=== PATIENT | female | born 1980 | race Caucasian/White ===

== ENCOUNTER 2016-05-17 23:51 | Outpatient (CLI) | payer MEDICAID ==
[~2016-05-17] VITALS: Ht 165.1 cm; Wt 71.6 kg
[~2016-05-17 23:51] MED LIST: PREN-46 PO
[2016-05-18 00:18] VITALS: BP 106/59; PULSE 80; RESP 16; Ht 165.1 cm; Wt 71.6 kg
[2016-05-18 00:42] LABS: ADD UMIC YES; URINE BILIRUBIN (Dip) NEGATIVE (NEGATIVE); URINE BLOOD (Dip) TRACE (NEGATIVE); URINE COLOR LT. YELLOW (YELLOW); URINE GLUCOSE (Dip) NEGATIVE (NEGATIVE); URINE KETONES (Dip) NEGATIVE (NEGATIVE); URINE LEUKOCYTE ESTERASE (Dip) NEGATIVE (NEGATIVE); URINE NITRITE (Dip) NEGATIVE (NEGATIVE); URINE TOTAL PROTEIN (Dip) NEGATIVE (NEGATIVE); URINE UROBILINOGEN (Dip) 0.2 E.U./dL (0.1-1.0)
[2016-05-18 00:51] LABS: BASOPHILS % 0.4 % (0.0-2.0); EOSINOPHILS # 0.2 10^3/ul (0.0-0.5); EOSINOPHILS % 2.3 % (0.0-7.0); HEMATOCRIT 32.2 % (37.0-47.0); HEMOGLOBIN 11.1 g/dl (12.0-16.0); LYMPHOCYTES # 1.9 10^3/ul (0.8-2.9); LYMPHOCYTES % 20.5 % (15.0-51.0); MEAN CORPUSCULAR HEMOGLOBIN 31.1 pg (29.0-33.0); MEAN CORPUSCULAR HGB CONC 34.5 g/dl (32.0-37.0); MEAN CORPUSCULAR VOLUME 90.2 fl (82.0-101.0); MEAN PLATELET VOLUME 10.1 fl (7.4-10.4); MONOCYTE # 0.8 10^3/ul (0.3-0.9); MONOCYTES % 8.5 % (0.0-11.0); NEUTROPHIL # 6.2 10^3/ul (1.6-7.5); NEUTROPHILS % 67.3 % (39.0-77.0); PLATELET COUNT 173 10^3/UL (140-415); RED BLOOD COUNT 3.57 10^6/ul (4.20-5.40); RED CELL DISTRIBUTION WIDTH 12.8 % (11.5-14.5); WHITE BLOOD COUNT 9.2 10^3/ul (4.8-10.8)
--- NOTE | 2016-05-18 01:13 | RADRPT ---
PROCEDURE: CERVICAL LENGTH ULTRASOUND CLINICAL INDICATION: Pre-term labor. TECHNIQUE: Transabdominal and transvaginal imaging of the cervical canal was performed utilizing g ray-scale imaging. Sagittal and transverse images were obtained. The images were reviewed on a PACS workstation. COMPARISON: None. FINDINGS: heart rate is 122 beats per minute. The cervix is closed with a length of 3.8 cm as visualized with transvaginal transducer. Placenta is anterior without evidence of abruption or previa. IMPRESSION: The cervix is closed with a length of 3.8 cm. No evidence of placental abruption or previa. RPTAT: AADD .Neo Cavanaugh MD, MD Date Time Electronically viewed and signed by .Neo Cavanaugh MD, on 05/18/2016 01:12 .B/
--- NOTE | 2016-05-18 01:43 | TRIAGE ---
OB Triage Datetime Report Generated by CPN: 05/18/2016 01:43 Datetime: 05/18/2016 01:34 Monitor Mode: Palpation Resting Tone Elwin: Relaxed Datetime: 05/18/2016 01:30 Labor Evaluation Frequency: NONE Duration (sec)2399: NONE Pattern: Normal: <= 5 Contractions in 10 Minutes Resting Tone Elwin: Relaxed Datetime: 05/18/2016 01:25 Stage of : OB Triage Datetime: 05/18/2016 01:00 Labor Evaluation Frequency: none Duration (sec)2399: none Pattern: Normal: <= 5 Contractions in 10 Minutes Resting Tone Elwin: Relaxed Datetime: 05/18/2016 00:48 Comments: external monitor removed. nst completed Datetime: 05/18/2016 00:30 Labor Evaluation Frequency: NONE Monitor Mode: External Duration (sec)2399: NONE Pattern: Normal: <= 5 Contractions in 10 Minutes Heart Rate FHR Baseline Rate: 135 Monitor Mode: External US FHR Baseline Changes: No Baseline Change Variability: Moderate 6-25 bpm Accelerations: 10X10 Decelerations: None Category: Category I Datetime: 05/18/2016 00:02 Monitor Mode: Palpation Resting Tone Elwin: Relaxed Datetime: 05/18/2016 00:01 Stage of : OB Triage Monitor Mode: External (Annotations: monitors applied) Monitor Mode: External US (Annotations: monitors applied) Datetime: 05/17/2016 23:56 Assessment Type: Triage EGA: 24.1 Maternal Assessment Level of Consciousness: Fully Conscious Headache: Denies Blurred Vision: No Respiratory Effort: Unlabored; Regular Rhythm; Equal Expansion Breath Sounds, Left: Clear and Equal Breath Sounds, Right: Clear and Equal Nausea/Vomiting: Denies RUQ Epigastric Pain: Denies Facial Edema: None Fall Risk Assessment History of Falling: (0) No Secondary Diagnosis: (0) No Ambulatory Aid: (0) Bedrest/Nurse Assist IV Therapy: (0) No Gait: (0) Normal/Bedrest/Immobile Mental Status: (0) Oriented to Own Ability Fall Score: 0 Fall Risk Score Definition: No Risk: No action required Datetime: 05/17/2016 23:54 Time of Arrival: 05/17/2016 23:45 Arrived By: Ambulatory Arrived From: Home Chief Complaint: SCANT BLEEDING AT 21:00 Movement: Absent Contractions: Denies/Absent Rupture of Membranes: Denies Vaginal Bleeding: Scant Vaginal Discharge: Denies Recent Sexual Intercouse: Yes Abdominal Trauma: Not Applicable Patient Complaints: Other Time Provider Notified: 05/18/2016 00:11 Provider Notified: JOSE Initial Plan: EFM, CALL OB
--- NOTE | 2016-05-18 01:47 | TRIAGE ---
OB Triage Datetime Report Generated by CPN: 05/18/2016 01:47 Datetime: 05/17/2016 23:54 Movement: Present
--- NOTE | 2016-05-18 01:49 | QN ---
Documentation Comment 36-year-old with IUP at 24 weeks with care at another facility presented with complaint of postcoital bleeding started tonight after she had intercourse in the morning. She feels some intermittent low back pain as well. She denies any leaking of fluid. She denies any decreased movement. No other complaint. Physical examination : general appearance, alert and oriented and in not in acute distress. Abdomen: Soft, gravid, nontender, no rebound tenderness, no guarding no rigidity Fundal height consistent with gestational age. Extremities: No calf tenderness no click no edema. NST: Appropriate for gestational age. No contraction the monitor seen. Blood group: O+ Hemoglobin 11.1 Ultrasound no evidence of abruption or previa Cervical length 3.8 cm. Assessment: IUP at 24 weeks Status post postcoital light bleeding, resolved. Rh+ PROCEDURE: CERVICAL LENGTH ULTRASOUND CLINICAL INDICATION: Pre-term labor. TECHNIQUE: Transabdominal and transvaginal imaging of the cervical canal was performed utilizing maldonado-scale imaging. Sagittal and transverse images were obtained. The images were reviewed on a PACS workstation. COMPARISON: None. FINDINGS: heart rate is 122 beats per minute. The cervix is closed with a length of 3.8 cm as visualized with transvaginal transducer. Placenta is anterior without evidence of abruption or previa. IMPRESSION: The cervix is closed with a length of 3.8 cm. No evidence of placental abruption or previa. RPTAT: AADD No evidence of labor. Patient will be discharged home. Patient was given labor precaution Advised the patient to return to triage if she has any contractions, leaking of fluid, decreased movement or for any other concern immediately. Patient verbalized understanding. Next Follow-up with OB clinic in 2-3 days recommended. MARK GARCIA MD May 18, 2016 01:49
[2016-05-18 01:51] LABS: SQUAMOUS EPITHELIAL CELL,UR RARE; URINE RBCS 0-2 /HPF (0)
== END 2016-05-18 01:46 | disposition home or self-care (01) ==
LOC: OBT 23:51 → L-D 23:53 → OBT 05-18 01:46
PROVIDERS: ATTEND Obstetrics & Gynecology Obstetrics
DX: O26.892 Other specified pregnancy related conditions, second trimester (principal); N93.0 Postcoital and contact bleeding; O09.522 Supervision of elderly multigravida, second trimester; Z3A.24 24 weeks gestation of pregnancy
CPT/HCPCS: 36415; 76815; 76817; 81001; 81003; 85025; 86850; 86900; 86901; Z7500; G0463

== ENCOUNTER 2016-09-08 17:16 | Inpatient (IN) | payer MEDICAID ==
[~2016-09-08] VITALS: Ht 167.6 cm; Wt 76.2 kg
[2016-09-08 17:21] VITALS: Ht 167.6 cm; Wt 76.2 kg
[2016-09-08] MEDS ORDERED: LACTATED RINGER'S 1,000 ML IV SCH (17:38)
[2016-09-08 17:59] LABS: ADD SCAN DIFF NO
[2016-09-08] MEDS ORDERED: OXYTOCIN 30 UNITS/LR 500 ML IV PRN ×2 (18:00→23:30)
[2016-09-08] MEDS ORDERED: METHYLERGONOVINE 0.2 MG INJ IM PRN ×2 (18:00→23:30)
[2016-09-08] MEDS ORDERED: MISOPROSTOL 200 MCG TAB PR PRN ×2 (18:00→23:30)
[2016-09-08] MEDS ORDERED: LIDOCAINE 1% (MPF) 30 ML INJ INJ PRN (18:00)
[2016-09-08] MEDS ORDERED: BUTORPHANOL 2 MG INJ IV PRN (18:00)
[2016-09-08] MEDS ORDERED: AMPICILLIN 2 GM/NS (PMX) 100 ML IV ONE (18:00)
[2016-09-08] MEDS ORDERED: CARBOPROST 250 MCG INJ IM PRN ×2 (18:00→23:30)
[2016-09-08] MEDS ORDERED: OXYTOCIN 30 UNITS/LR 500 ML IV SCH ×2 (18:00)
[2016-09-08] MEDS ORDERED: ACETAMINOPHEN/CODEINE #3 TAB PO PRN (18:00)
[2016-09-08] MEDS ORDERED: IBUPROFEN 600 MG TAB PO PRN (18:00)
--- NOTE | 2016-09-08 18:00 | TRIAGE ---
OB Triage Datetime Report Generated by CPN: 09/08/2016 18:00 Datetime: 09/08/2016 17:33 Vaginal Exam Dilatation (cms): 2.0 Effacement (%): 80 Station: -2 Datetime: 09/08/2016 17:10 Time of Arrival: 09/08/2016 17:10 EGA: 40.2 Arrived By: Ambulatory Arrived From: Home Movement: Present Contractions: Irregular Rupture of Membranes: Denies Vaginal Bleeding: None Vaginal Discharge: Present Recent Sexual Intercouse: Denies Abdominal Trauma: Not Applicable Patient Complaints: Cramping Time Provider Notified: 09/08/2016 17:30 Provider Notified: LYDIA Datetime: 05/18/2016 01:28 Time of Arrival: 09/08/2016 17:10 EGA: 40.2 Arrived By: Ambulatory Arrived From: Home Chief Complaint: SPOTTING Movement: Present Contractions: Irregular Rupture of Membranes: Denies Vaginal Bleeding: Small Vaginal Discharge: Denies Recent Sexual Intercouse: Denies Abdominal Trauma: Not Applicable Patient Complaints: Cramping Time Provider Notified: 09/08/2016 17:20 Provider Notified: LYDIA Datetime: 05/17/2016 23:56 EGA: 24.1 Fall Risk Assessment Fall Score: 0 Fall Risk Score Definition: No Risk: No action required
[2016-09-08 18:02] LABS: BASOPHILS % 0.5 % (0.0-2.0); EOSINOPHILS # 0.2 10^3/ul (0.0-0.5); EOSINOPHILS % 2.3 % (0.0-7.0); HEMATOCRIT 37.5 % (37.0-47.0); LYMPHOCYTES # 1.4 10^3/ul (0.8-2.9); LYMPHOCYTES % 18.5 % (15.0-51.0); MEAN CORPUSCULAR HEMOGLOBIN 31.3 pg (29.0-33.0); MEAN CORPUSCULAR HGB CONC 34.7 g/dl (32.0-37.0); MEAN CORPUSCULAR VOLUME 90.1 fl (82.0-101.0); MEAN PLATELET VOLUME 10.4 fl (7.4-10.4); MONOCYTE # 0.8 10^3/ul (0.3-0.9); MONOCYTES % 11.4 % (0.0-11.0); NEUTROPHIL # 4.9 10^3/ul (1.6-7.5); NEUTROPHILS % 66.5 % (39.0-77.0); PLATELET COUNT 177 10^3/UL (140-415); RED BLOOD COUNT 4.16 10^6/ul (4.20-5.40); RED CELL DISTRIBUTION WIDTH 13.1 % (11.5-14.5); WHITE BLOOD COUNT 7.4 10^3/ul (4.8-10.8)
[2016-09-08 18:17] LABS: INR 0.9; PROTIME 12.1 Sec (12.2-14.2); PT RATIO 0.9
[2016-09-08 18:18] LABS: PARTIAL THROMBOPLASTIN TIME 25.5 Sec (25.0-35.0)
[2016-09-08] MEDS ORDERED: LACTATED RINGER'S 1,000 ML IV PRN (19:00)
[2016-09-08] MEDS ORDERED: AMPICILLIN 1 GM/NS (PMX) 50 ML IV SCH (22:00)
[2016-09-08] MEDS ORDERED: LACTATED RINGER'S 1,000 ML IV* SCH (23:02)
--- NOTE | 2016-09-08 23:09 | LDN ---
Date/Time of Note Date/Time of Note DATE: 09/08/16 TIME: 23:06 Delivery Summary of a viable baby boy weighing 3645 grams or 8# 1oz, 19.5" long, and with Apgars of 8/9. Weeks of Gestation 40w 2d Placenta Delivered: Spontaneously Meconium: Light Episiotomy: No Perineal laceration: 1 Laceration repair: First degree perineal and a first degree right labial laceration both repaired with 2-0 chromic. Anesthesia type: Local Estimated blood loss: 150 Sponge & Needle done & correct: Yes All needle counts correct: Yes Any foreign bodies felt in the: No (vagina) Problems: Infant Delivery Information Sex Infant Sex: male Apgars 1 Minute: 8 5 Minute: 9 Suctioning Nose & mouth suctioned at anika: No Delee suction performed: No Umbilical Cord Umbilical cord with: 3 Vessels Cord presentations: no nuchal cord Cord Blood was obtained: Yes Mother & Baby Disposition Disposition Mom & Baby to Maternity; Good: Yes Baby to NICU: No BRIAN WILKS MD Sep 08, 2016 23:09
[2016-09-08] MEDS: OXYTOCIN 30 UNITS/LR 500 ML IV SCH (23:12)
--- NOTE | 2016-09-08 23:14 | HP ---
Date/Time of Note Date/Time of Note DATE: 09/08/16 TIME: 23:09 OB - History Hx of Present Free Text/Dictation 36 y.o. with an IUP at 40w 2dcame in labor and was 80%/2cm and intact on admission. Estimated Due Date: Sep 06, 2016 : 6 Para: 5 Care: Good Care Ultrasounds: Normal mid trimester US Medical Complications: None Past Family/Social History * Past Medical, Surgical, Family and Obstetric Histories reviewed with pt as records were not available. Blood Type: O+ Rubella: unknown RPR/VDRL: Unknown GBS Status: Negative HBsAG: Negative OB Admission Exam Vital Signs Vital Signs T=98.5 BP 110/68 Physical Exam HEENT: WNL Heart: Rhythm Normal Lungs: Clear Abdomen: WNL Extremities: Normal Reflexes: Normal Cervical Dilatation: 2cm Effacement: 75% Station: -2 Membranes: Intact Amniotic Fluid: Thin Meconium Heart Rate: 130's Accelerations: Accelerations Present Decelerations: No Decelerations Varibility: Moderate Contractions on Admission: 6-10 Minutes Apart Intensity: Moderate Last 72 hours Lab Results CBC & BMP 09/08/16 17:50 OB Assessment/Plan Reason for admission: active labor Plan: Expectant Management BRIAN WILKS MD Sep 08, 2016 23:14
[2016-09-08] MEDS ORDERED: BENZOCAINE 20% 56 ML SPRAY TOP PRN (23:30)
[2016-09-08] MEDS ORDERED: LANOLIN 7 GM TUBE TOP PRN (23:30)
[2016-09-08] MEDS ORDERED: OXYCODONE/ASPIRIN (4.88/325) TAB PO PRN (23:30)
[2016-09-09 00:40] VITALS: BP 115/66; PULSE 74; RESP 18
[2016-09-09] MEDS: IBUPROFEN 600 MG TAB PO SCH ×4 (01:26→17:47)
[2016-09-09 04:13] VITALS: BP 101/60; PULSE 82; RESP 18
[2016-09-09 08:10] VITALS: BP 94/55; PULSE 70; RESP 18
[2016-09-09 08:36] LABS: ADD SCAN DIFF NO
[2016-09-09 09:01] LABS: BASOPHILS % 0.3 % (0.0-2.0); EOSINOPHILS # 0.1 10^3/ul (0.0-0.5); EOSINOPHILS % 1.2 % (0.0-7.0); HEMOGLOBIN 11.6 g/dl (12.0-16.0); LYMPHOCYTES # 1.5 10^3/ul (0.8-2.9); LYMPHOCYTES % 14.5 % (15.0-51.0); MEAN CORPUSCULAR HEMOGLOBIN 31.7 pg (29.0-33.0); MEAN CORPUSCULAR HGB CONC 35.2 g/dl (32.0-37.0); MEAN CORPUSCULAR VOLUME 90.2 fl (82.0-101.0); MEAN PLATELET VOLUME 11.1 fl (7.4-10.4); MONOCYTE # 0.8 10^3/ul (0.3-0.9); MONOCYTES % 8.2 % (0.0-11.0); NEUTROPHIL # 7.7 10^3/ul (1.6-7.5); NEUTROPHILS % 75.3 % (39.0-77.0); PLATELET COUNT 166 10^3/UL (140-415); RED BLOOD COUNT 3.66 10^6/ul (4.20-5.40); RED CELL DISTRIBUTION WIDTH 13.1 % (11.5-14.5); WHITE BLOOD COUNT 10.2 10^3/ul (4.8-10.8)
--- NOTE | 2016-09-09 09:15 | PN ---
Date/Time of Note Date/Time of Note DATE: 09/09/16 TIME: 09:14 OB Subjective Subjective Subjective Post normal vaginal delivery day 1 Afebrile vital signs are stable abdomen soft uterus firm lochia normal extremity normal ambulation encouraged. Laboratory Tests Test 09/08/16 17:50 09/09/16 06:47 White Blood Count 7.410^3/ul 10.210^3/ul Red Blood Count 4.1610^6/ul 3.6610^6/ul Hemoglobin 13.0g/dl 11.6g/dl Hematocrit 37.5% 33.0% Mean Corpuscular Volume 90.1fl 90.2fl Mean Corpuscular Hemoglobin 31.3pg 31.7pg Mean Corpuscular Hemoglobin Concent 34.7g/dl 35.2g/dl Red Cell Distribution Width 13.1% 13.1% Platelet Count 37306^3/UL 52641^3/UL Mean Platelet Volume 10.4fl 11.1fl Neutrophils % 66.5% 75.3% Lymphocytes % 18.5% 14.5% Monocytes % 11.4% 8.2% Eosinophils % 2.3% 1.2% Basophils % 0.5% 0.3% Nucleated Red Blood Cells % 0.0/100WBC 0.0/100WBC Neutrophils # 4.910^3/ul 7.710^3/ul Lymphocytes # 1.410^3/ul 1.510^3/ul Monocytes # 0.810^3/ul 0.810^3/ul Eosinophils # 0.210^3/ul 0.110^3/ul Basophils # 0.010^3/ul 0.010^3/ul Nucleated Red Blood Cells # 0.010^3/ul 0.010^3/ul Prothrombin Time 12.1Sec Prothrombin Time Ratio 0.9 INR International Normalized Ratio 0.90 Activated Partial Thromboplast Time 25.5Sec Rapid Plasma Reagin NONREACTIVE Hepatitis B Surface Antigen NEGATIVE Current Medications Medications (Trade) Dose Ordered Sig/Lazara Route PRN Reason Start Time Stop Time Status Last Admin Dose Admin Lactated Ringer's 1,000 ml @ 125 mls/hr Q8H IV 09/08/16 17:38 09/08/16 23:06 DC 09/08/16 17:55 Ampicillin 100 ml @ 100 mls/hr ONCE ONCE IV 09/08/16 18:00 09/08/16 18:00 DC Ampicillin (Ampicillin 1 Gm/ NS (Pmx)) 50 ml @ 100 mls/hr Q4H IV 09/08/16 22:00 09/08/16 22:00 DC Butorphanol Tartrate (Stadol) 2 mg Q2H PRN IV PAIN 09/08/16 18:00 09/08/16 23:06 DC Lidocaine 30 ml 30 ml ONCE PRN INJ EPISIOTOMY/TEARING 09/08/16 18:00 09/08/16 23:06 DC Oxytocin/Lactated Ringer's 500 ml @ 125 mls/hr ONCE -MAY REPEAT X1 IV 09/08/16 18:00 09/08/16 23:06 DC Oxytocin/Lactated Ringer's 500 ml @ 125 mls/hr ONCE IV 09/08/16 18:00 09/08/16 23:06 DC Ibuprofen (Motrin) 600 mg ONCE PRN PO Mild Pain (Pain Score 1-3) 09/08/16 18:00 09/08/16 23:06 DC Acetaminophen/ Codeine Phosphate 2 tab 2 tab ONCE PRN PO Moderate to Severe Pain (4-10) 09/08/16 18:00 09/08/16 23:06 DC Lactated Ringer's 1,000 ml @ 2,000 mls/hr Q30M PRN IV PRE-EPIDURAL BOLUS 09/08/16 19:00 09/08/16 23:06 DC Oxytocin/Lactated Ringer's 500 ml @ 0 mls/hr ONCE PRN IV For Hemorrhage Management 09/08/16 18:00 09/08/16 23:06 DC 09/08/16 22:50 Methylergonovine Maleate (Methergine) 0.2 mg ONCE PRN IM VAGINAL BLEEDING 09/08/16 18:00 09/08/16 23:06 DC Carboprost Tromethamine (Hemabate) 250 mcg ONCE PRN IM VAGINAL BLEEDING 09/08/16 18:00 09/08/16 23:06 DC Misoprostol 1000 mcg 1,000 mcg ONCE PRN NE VAGINAL BLEEDING 09/08/16 18:00 09/08/16 23:06 DC Oxytocin/Lactated Ringer's 500 ml @ 125 mls/hr Q4H IV 09/08/16 23:02 09/09/16 07:01 DC 09/08/16 23:12 Lactated Ringer's (Lr) 1,000 ml @ 125 mls/hr Q8H IV* 09/08/16 23:02 09/09/16 07:54 DC Ibuprofen (Motrin) 600 mg Q6 PO 09/09/16 00:00 09/09/16 05:49 Oxycodone/Aspirin (Percodan) 1 tab Q3H PRN PO PAIN LEVEL 1-5 09/08/16 23:30 09/08/16 23:32 Benzocaine (Dermoplast [place]) 1 spray BEDSIDE MEDICATION PRN TOP HEMORRHOID/EPISIOTMY PAIN 09/08/16 23:30 Lanolin ([id number]) 1 applic BEDSIDE MEDICATION PRN TOP BEDSIDE FOR BRISA TO NIPPLES 09/08/16 23:30 Diphtheria/ Tetanus/Acell Pertussis 0.5 ml 0.5 ml ONCE ONCE IM* 09/10/16 09:00 09/10/16 09:01 Oxytocin/Lactated Ringer's 500 ml @ 0 mls/hr ONCE PRN IV For Hemorrhage Management 09/08/16 23:30 Methylergonovine Maleate (Methergine) 0.2 mg ONCE PRN IM VAGINAL BLEEDING 09/08/16 23:30 Carboprost Tromethamine (Hemabate) 250 mcg ONCE PRN IM VAGINAL BLEEDING 09/08/16 23:30 Misoprostol (Cytotec) 1,000 mcg ONCE PRN NE VAGINAL BLEEDING 09/08/16 23:30 DANNY FREEMAN MD Sep 09, 2016 09:15
[2016-09-09 11:47] VITALS: BP 107/67; PULSE 72; RESP 18
[2016-09-09 16:00] VITALS: BP 105/59; PULSE 72; RESP 18
[2016-09-09 20:13] VITALS: BP 99/58; PULSE 68; RESP 18
[2016-09-10] MEDS: IBUPROFEN 600 MG TAB PO SCH ×3 (00:49→11:28)
[2016-09-10] MEDS: OXYTOCIN 30 UNITS/LR 500 ML IV SCH (01:34)
[2016-09-10 04:27] VITALS: BP 115/69; PULSE 67
[2016-09-10] MEDS ORDERED: PANTOPRAZOLE (EC) 40 MG TAB PO SCH (06:00)
[2016-09-10 08:00] VITALS: BP 106/57; PULSE 66; RESP 17
[2016-09-10] MEDS ORDERED: DIPHTH/TET/ACEL PERTUSS (ADULT) 0.5 ML VIAL IM* ONE (09:00)
--- NOTE | 2016-09-10 10:10 | PD.PPDC ---
PATIENT EDUCATOR Discharge Instruction Condition Patient Condition: Good Diet Diet: Resume Regular Diet Activity/Restrictions Activity: Normal Activity May Shower Restrictions: No Exercising No Lifting No Driving No Sexual Activity Nothing in the Vagina No [place] No Tampons, douche Follow-up Follow-up with Physician: 2, Week/Weeks Provider Information: Appointment clinic in 2 weeks for check Return to clinic for HOME CARE COMPANION Instructions: Fever greater than 101 Chills Worsening abdominal pain Excessive Vaginal Bleeding More than 2 pads per hour Unable to tolerate diet OB Instructions: Breast Tenderness Depression Blurried Vision Headache DANNY FREEMAN MD Sep 10, 2016 10:10
--- NOTE | 2016-09-10 10:13 | DS ---
Date/Time of Note Date/Time of Note DATE: 09/10/16 TIME: 10:11 Discharge Summary Admission/Discharge Info Admit Date/Time Sep 08, 2016 at 18:03 Discharge Date/Time September 10, 2016 at 1010 Final Diagnosis Post normal vaginal delivery day 2 Patient Condition: Good Procedures Normal vaginal delivery Hx of Present Illness Term Hospital Course Satisfactory uneventful Home Meds Reported Medications Vit #108/Iron/Fa ( ONE TABLET) 1 Each Tablet, 1 EACH PO DAILY 11/27/12 Follow-up Plan Appointment clinic in 2 weeks for check Primary Care Provider Care Physician No Primary Time spent on discharge: < 30 minutes DANNY FREEMAN MD Sep 10, 2016 10:13
== END 2016-09-10 16:48 | disposition home or self-care (01) | DRG 775 ==
LOC: L-D 17:16 → OBT 17:16 → L-D 18:03 → PP1 09-09 00:48
PROVIDERS: ADMIT Obstetrics & Gynecology; ATTEND Obstetrics & Gynecology
PROC: 10E0XZZ Delivery of Products of Conception, External Approach (ICD-10-PCS; principal; 2016-09-08)
PROC: 0HQ9XZZ Repair Perineum Skin, External Approach (ICD-10-PCS; 2016-09-08)
DX: O48.0 Post-term pregnancy (principal); O70.0 First degree perineal laceration during delivery; Z3A.40 40 weeks gestation of pregnancy; Z37.0 Single live birth
CPT/HCPCS: 85025; 85610; 85730; 86592; 86900; 86901; 87340; 90715; J2590; J7120